=== PATIENT | female | born 1980 | race Caucasian/White ===

== ENCOUNTER 2016-08-03 20:34 | Emergency (ER) | payer BC ==
[~2016-08-03] VITALS: Ht 162.6 cm; Wt 117.5 kg
[~2016-08-03 20:34] MED LIST: ESTR1TAB13 PO; ESTR1TAB15 PO; LEVO75TA PO; SERT100T PO
--- NOTE | 2016-08-03 21:24 | PHYS DOC ---
General Chief Complaint: FLANK PAIN Stated Complaint: LOWER BACK PAIN X 2 DAYS Time Seen by MD: 21:15 Source: patient Problems: History of Present Illness Initial Comments Patient here for right flank pain. Patient says it started last night when she was shopping. The pain was sudden, sharp, but then went away. Today, she is noted increased urination over the course the day, with increased frequency, and then tonight again her sharp right flank pain recurred. There is no history of injury or trauma to the area and she never had this happen before. She's had no fever or chills. There is no runny nose or sore throat. There is no chest pain or shortness of breath. She's had some nausea with the pain but no vomiting. She's been able to eat and drink today without difficulty. There's no abdominal pain. She has some chronic issues with diarrhea following gallbladder surgery but this is not acutely changed or different. She has increasing frequency of urination as noted but no dysuria no change in color of the urine. There's no vaginal discharge or bleeding. She's had a hysterectomy. She denies any acute focal extremity or neurologic complaints. Patient's really done nothing at home for this but drink cranberry juice and notes no other increased or decreasing factors. She has no known history of kidney issues. Patient's past nuchal history is remarkable for narcolepsy as well as some hypothyroidism. She is on appropriate medications. She is a nonsmoker and nonuser of ethanol. No history in the family kidney stones. Allergies: Coded Allergies: Penicillins (Verified Allergy, Unknown, 09/01/14) morphine (Verified Allergy, Unknown, 09/01/14) Past Medical History Medical History: other Surgical History: cholecystectomy Social History Smoker: non-smoker Alcohol: none Review of Systems All Other Systems: Reviewed and Negative Physical Exam General Appearance: WD/WN, no apparent distress Neck: supple, normal inspection Respiratory: lungs clear, normal breath sounds, no respiratory distress Cardiovascular: regular rate, rhythm, no edema Gastrointestinal: non tender, soft Back: no vertebral tenderness, CVA tenderness (R) Extremities: non-tender, normal inspection, no pedal edema Neurologic/Psychiatric: alert, normal mood/affect, oriented x 3 Skin: normal color Lymphatic: no adenopathy Comments Generally this is a morbidly obese white female in no acute distress. Vitals are as noted. Pertinent findings on physical exam showed chest to be clear. Cardiac exam shows regular rate and rhythm without murmur. The abdomen is soft and nontender without masses or megaly. There is no perineal findings. There is some mild to moderate right CVA tenderness noted on the back. Vertebral areas are clear and there is no signs of trauma. Extremity show no rashes cyanosis or edema. Neurologic exam shows patient awake alert oriented and cooperative. Remainder of physical exam is clinically unremarkable. Orders, Labs, Meds Old charts note no prior ER visits within the current system. Labs here clinically unremarkable. Renal function is stable. Patient does have some hematuria consistent with renal stones. CT scan of the abdomen and pelvis shows a 4 mm calculus at the right ureterovesicular junction with mild obstructive uropathy. Is also small bilateral nonobstructing renal calculi. Soft tissue density in the right middle lobe for which follow-up is recommended per radiology. 2310 Patient resting comfortably in the ED. She feels better after fentanyl with only minimal pain remaining. I discussed with the patient most likely cause her pain is related to her renal stone. Fortunately this is a size that should pass on its own. I discussed with her that if she felt option, we could probably try to handle this at home. We can get her started on some appropriate medicine for pain and nausea, with outpatient follow-up to see why she is forming stones. She may also return to the ER immediately as needed if worsen anyway and consider admission at that time. Alternately, she still felt unwell her with some significant pain, we could certainly admit her for further care at this time. After discussion, the patient states she feels well enough and wants to try this at home. I think this is a reasonable decision on her part. We discussed home care including rest, increasing fluids including cranberry juice, local heat, and use of medication for pain and nausea. I'll write prescriptions for Zofran and Lortab accordingly. She does voice understanding of the need to follow up with primary care or return to the ER sooner as needed if worsening anyway. Also discussed with her possible soft tissue density over the chest area which will need follow-up by her primary care physician. She voices understanding. She looks well, in no acute discomfort distress, okay for discharge home at this time per her preference. CROW KIRBY MD Aug 03, 2016 21:24
[2016-08-03] MEDS ORDERED: IV NORMAL SALINE 1,000ML 1,000 ML IV ONE (21:30)
[2016-08-03] MEDS ORDERED: FENTANYL PF 100 MCG/2 ML VIAL. IV ONE (21:45)
--- NOTE | 2016-08-03 22:03 | RAD ---
PROCEDURE CT abdomen and pelvis without contrast HISTORY Right flank pain with nausea, onset last night. TECHNIQUE Helical CT imaging of the abdomen and pelvis is performed without IV or oral contrast. PQRS: One or more the following individualized dose reduction techniques were utilized for the study: 1. Automated exposure control. 2. Adjustment of the mA and/or kV according to patient size. 3. Use of iterative reconstruction technique. COMPARISON None. FINDINGS Evaluation of solid organs and bowel is limited without oral and IV contrast, decreasing sensitivity for detection of pathology. There is a lobular soft tissue density nodule in the right middle lobe measuring 2.4 x 1.4 cm. There are 2 tiny subpleural nodules in the left lower lobe, image 11. Cardiac size normal. Cholecystectomy. The liver, spleen, pancreas, adrenal glands, and abdominal aortic caliber normal. 3 millimeter nonobstructing left renal calculus. 2 millimeter nonobstructing calculus upper pole right kidney. There is mild right hydroureteronephrosis secondary to a 4 millimeter calculus at the ureterovesicular junction, image 136. Stomach unremarkable. No dilated small bowel. There is no colon wall thickening. The appendix is normal. No abdominal adenopathy or free fluid. Urinary bladder is nearly completely decompressed accentuating wall thickness. Uterus surgically absent. No pelvic free fluid. Fat density lesion right sacrum may be intraosseous lipoma. IMPRESSION 1. Mild right obstructive uropathy secondary to a 4 millimeter calculus at the ureterovesicular junction. 2. Bilateral nonobstructing renal calculi. 3. There is a lobular soft tissue density nodule in the right middle lobe. Recommend comparison with prior imaging. If none is available finding could be further evaluated with FDG PET/CT versus noncontrast CT chest follow up in 3 months. Electronically signed by: Toy Zapata MD (Aug 03, 2016 22:02:20)
[2016-08-03 22:29] LABS: BASO % 0 % (0-3); EOS # 0.2 x10^3/uL (0.0-0.7); EOS % 2 % (0-3); HEMATOCRIT 37.1 % (36.0-47.0); HEMOGLOBIN 11.9 g/dL (12.0-15.5); LYMPH # 2.5 x10^3/uL (1.0-4.8); LYMPH % 26 % (24-48); MEAN CORPUSCULAR HEMOGLOBIN 24 pg (25-35); MEAN CORPUSCULAR HGB CONC 32 g/dL (31-37); MEAN CORPUSCULAR VOLUME 75 fL (79-100); MONO # 0.7 x10^3/uL (0.0-1.1); MONO % 7 % (0-9); NEUT # 6.2 x10^3uL (1.8-7.7); NEUT % 64 % (31-73); PLATELET COUNT 206 x10^3/uL (140-400); RED BLOOD COUNT 4.91 x10^6/uL (3.50-5.40); RED CELL DISTRIBUTION WIDTH 13.6 % (11.5-14.5); WHITE BLOOD COUNT 9.5 x10^3/uL (4.0-11.0)
[2016-08-03 22:41] LABS: ALBUMIN 3.8 g/dL (3.4-5.0); ALBUMIN/GLOBULIN RATIO 0.8 (1.0-1.7); CALCIUM 9.1 mg/dL (8.5-10.1); GFR 63.5; POTASSIUM 3.8 mmol/L (3.5-5.1); TOTAL BILIRUBIN 0.3 mg/dL (0.2-1.0); TOTAL PROTEIN 8.4 g/dL (6.4-8.2)
[2016-08-03 22:55] LABS: BILIRUBIN,URINE NEG (NEG); CLARITY,URINE HAZY; COLOR,URINE YELLOW; GLUCOSE,URINE NEG (NEG)
[2016-08-03 22:56] LABS: BACTERIA,URINE FEW /HPF (0-FEW); NITRITE,URINE NEG (NEG); RBC,URINE 20-40 /HPF (0-2); UROBILINOGEN,URINE 0.2 mg/dL (0.2 mg/dL); WBC,URINE 0 /HPF (0-4)
[2016-08-03 22:57] LABS: SQUAMOUS EPITHELIAL CELL,UR MANY /LPF
[2016-08-03 23:43] VITALS: BP 158/99
== END 2016-08-03 23:44 | disposition home or self-care (01) ==
LOC: ER 20:34
DX: N20.0 Calculus of kidney (principal); E03.9 Hypothyroidism, unspecified; Z90.49 Acquired absence of other specified parts of digestive tract; Z88.0 Allergy status to penicillin; Z88.5 Allergy status to narcotic agent
CPT/HCPCS: 36415; 74176; 80053; 81001; 85027; 96361; 96374; 99285; J3010; J7030

== ENCOUNTER → 2017-07-19 | Outpatient (CLI) | payer BC ==
--- NOTE | 2017-07-19 16:30 | RAD ---
DATE: 07/19/2017 EXAM: MAMMO BUCKY SCREENING BILATERAL HISTORY: Routine screening COMPARISON: Previous mammogram from 2016 This study was interpreted with the benefit of Computerized Aided Detection (CAD). FINDINGS: Breast Density: SCATTERED The breast parenchyma shows scattered fibroglandular densities. Breast parenchyma level B. The skin and nipples are within normal limits. No suspicious calcifications, spiculated mass or area of architectural distortion. IMPRESSION: No mammographic evidence of malignancy. Relatively stable mammogram when compared to previous study. BI-RADS CATEGORY: 2 BENIGN FINDING(S) RECOMMENDED FOLLOW-UP: 12M 12 MONTH FOLLOW-UP PQRS compliance statement: Patient information was entered into a reminder system with a target due date for the next mammogram. Mammography is a sensitive method for finding small breast cancers, but it does not detect them all and is not a substitute for careful clinical examination. A negative mammogram does not negate a clinically suspicious finding and should not result in delay in biopsying a clinically suspicious abnormality. "Our facility is accredited by the [employer] Mammography [employer]."
== END | disposition home or self-care (01) ==
LOC: MAMMO 15:34
PROVIDERS: ATTEND Obstetrics & Gynecology
DX: Z12.31 Encounter for screening mammogram for malignant neoplasm of breast (principal)
CPT/HCPCS: 77063; 77067

== ENCOUNTER → 2018-11-26 | Outpatient (CLI) | payer BC ==
--- NOTE | 2018-11-28 10:21 | RAD ---
DATE: 11/26/2018 EXAM: MAMMO BUCKY SCREENING BILATERAL HISTORY: Routine screening COMPARISON: 11/20/2015 and 07/11/2017 mammographic exams This study was interpreted with the benefit of Computerized Aided Detection (CAD). Breast Density: SCATTERED The breast parenchyma shows scattered fibroglandular densities. Breast parenchyma level B. FINDINGS: No mass, suspicious calcification, or distortion. IMPRESSION: Stable BI-RADS CATEGORY: 1 NEGATIVE RECOMMENDED FOLLOW-UP: 12M 12 MONTH FOLLOW-UP PQRS compliance statement: Patient information was entered into a reminder system with a target due date in one year for the next mammogram. Mammography is a sensitive method for finding small breast cancers, but it does not detect them all and is not a substitute for careful clinical examination. A negative mammogram does not negate a clinically suspicious finding and should not result in delay in biopsying a clinically suspicious abnormality. "Our facility is accredited by the [employer] Mammography Program."
== END | disposition home or self-care (01) ==
LOC: MAMMO 15:28
PROVIDERS: ATTEND Obstetrics & Gynecology
DX: Z12.31 Encounter for screening mammogram for malignant neoplasm of breast (principal)
CPT/HCPCS: 77063; 77067

== ENCOUNTER 2019-02-21 05:03 | Emergency (ER) | payer BC ==
[~2019-02-21] VITALS: Ht 165.1 cm; Wt 127.0 kg
[2019-02-21] MEDS ORDERED: IV RINGERS SOLUTION,LACTATED 1,000 ML IV SCH (05:08)
--- NOTE | 2019-02-21 05:08 | ED.ADGEN ---
Past History Past Medical History: Asthma, Depression, Hypothyroid, Kidney Stones, Other (ANDRESSA MANNING MD) Past Surgical History: Hysterectomy (ANDRESSA MANNING MD) Alcohol Use: None Drug Use: None (ANDRESSA MANNING MD) Adult General Chief Complaint Chief Complaint ".. I ve had a cold the last few days.. and have been take codeine... for my cold.. but I got this severe pain in my Lt. flank that woke me out of sleep.. it a little lower now.. and comes around front..." (NADRESSA MANNING MD) HPI HPI Patient is a 38 year old female who presents with above hx and complaints of severe 10 out of 10 left flank pain starting at 3:00 this morning. Pain radiates down her last side or flank and around to her abdomen. Percussion exacerbates pain. Patient does have a history of previous kidney stones. Has had a total hysterectomy and removal ovaries due to severe endometriosis... No recent travel. No specific ill contacts but does work as a [employer]. No recent travel. No history immunosuppression. No history of trauma. (ANDRESSA MANNING MD) Review of Systems Review of Systems Constitutional: Denies fever or chills [] Eyes: Denies change in visual acuity, redness, or eye pain [] HENT: Denies nasal congestion or sore throat [] Respiratory: Denies cough or shortness of breath [] Cardiovascular: No additional information not addressed in HPI [] GI: Complaints of left flank abdominal pain, nausea,. Denies Vomiting, bloody stools or diarrhea [] : Denies dysuria or hematuria [] Musculoskeletal: Plaints of left flank back pain Integument: Denies rash or skin lesions [] Neurologic: Denies headache, focal weakness or sensory changes [] Endocrine: Denies polyuria or polydipsia [] All other systems were reviewed and found to be within normal limits, except as documented in this note. (ANDRESSA MANNING MD) Family History Family History Noncontributory (ANDRESSA MANNING MD) Current Medications Current Medications Current Medications Medications (Trade) Dose Ordered Sig/Barron Start Time Stop Time Status Last Admin Dose Admin Famotidine (Pepcid Vial) 20 mg 1X ONCE 02/21/19 05:15 02/21/19 05:34 DC 02/21/19 05:27 20 MG Ketorolac Tromethamine (Toradol 30mg Vial) 30 mg 1X ONCE 02/21/19 05:30 02/21/19 05:34 DC 02/21/19 05:32 30 MG Lactated Ringer's 1,000 ml @ 1,000 mls/hr Q1H 02/21/19 05:08 02/21/19 06:07 DC 02/21/19 05:26 1,000 MLS/HR Ondansetron HCl (Zofran) 8 mg 1X ONCE 02/21/19 05:15 02/21/19 05:34 DC 02/21/19 05:27 8 MG ([facility]) Allergies Allergies Allergies Coded Allergies Type Severity Reaction Last Updated Verified Penicillins Allergy Unknown 09/01/14 Yes morphine Allergy Unknown 09/01/14 Yes ([facility] Physical Exam Physical Exam Constitutional: in acute distress, non-toxic appearance. [] HENT: Normocephalic, atraumatic, bilateral external ears normal, oropharynx moist, no oral exudates, nose normal. [] Eyes: PERRLA, EOMI, conjunctiva normal, no discharge. [] Neck: Normal range of motion, no tenderness, supple, no stridor. [] Cardiovascular:Heart rate regular rhythm, no murmur [] Lungs & Thorax: Bilateral breath sounds clear to auscultation [] Abdomen: Bowel sounds decreased,, soft, flank tenderness, no masses, no pulsatile masses. [] Old surgery scar Skin: Warm, dry, no erythema, no rash. [] Back: No tenderness, left CVA tenderness. [] Extremities: No tenderness, no cyanosis, no clubbing, ROM intact, no edema. [] No psoas sign Neurologic: Alert and oriented X 3, normal motor function, normal sensory function, no focal deficits noted. [] Psychologic: Affect anxious, judgement normal, mood normal. [] (ANDRESSA MANNING MD) Current Patient Data Vital Signs Vital Signs Date Time Temp Pulse Resp B/P (MAP) Pulse Ox O2 Delivery O2 Flow Rate FiO2 02/21/19 05:06 98.1 92 20 97 Room Air ([facility]) Lab Results Laboratory Tests Test 02/21/19 05:08 02/21/19 05:24 Urine Collection Type Unknown Urine Color Yellow Urine Clarity Clear Urine pH 6.5 Urine Specific [place] 1.025 Urine Protein Neg (NEG-TRACE) Urine Glucose (UA) Neg mg/dL (NEG) Urine Ketones (Stick) Neg mg/dL (NEG) Urine Blood Large (NEG) Urine Nitrite Neg (NEG) Urine Bilirubin Neg (NEG) Urine Urobilinogen Dipstick 0.2 mg/dL (0.2 mg/dL) Urine Leukocyte Esterase Neg (NEG) Urine RBC >40 /HPF (0-2) Urine WBC Occ /HPF (0-4) Urine Squamous Epithelial Cells Few /LPF Urine Bacteria 0 /HPF (0-FEW) Urine Opiates Screen Pos (NEG) Urine Methadone Screen Neg (NEG) Urine Barbiturates Neg (NEG) Urine Phencyclidine Screen Neg (NEG) Urine Amphetamine/Methamphetamine Neg (NEG) Urine Benzodiazepines Screen Neg (NEG) Urine Cocaine Screen Neg (NEG) Urine Cannabinoids Screen Neg (NEG) Urine Ethyl Alcohol Neg (NEG) White Blood Count 11.9 x10^3/uL (4.0-11.0) H Red Blood Count 5.20 x10^6/uL (3.50-5.40) Hemoglobin 12.7 g/dL (12.0-15.5) Hematocrit 40.4 % (36.0-47.0) Mean Corpuscular Volume 78 fL (79-100) L Mean Corpuscular Hemoglobin 24 pg (25-35) L Mean Corpuscular Hemoglobin Concent 32 g/dL (31-37) Red Cell Distribution Width 13.6 % (11.5-14.5) Platelet Count 232 x10^3/uL (140-400) Neutrophils (%) (Auto) 83 % (31-73) H Lymphocytes (%) (Auto) 13 % (24-48) L Monocytes (%) (Auto) 5 % (0-9) Eosinophils (%) (Auto) 0 % (0-3) Basophils (%) (Auto) 0 % (0-3) Neutrophils # (Auto) 9.8 x10^3uL (1.8-7.7) H Lymphocytes # (Auto) 1.5 x10^3/uL (1.0-4.8) Monocytes # (Auto) 0.6 x10^3/uL (0.0-1.1) Eosinophils # (Auto) 0.0 x10^3/uL (0.0-0.7) Basophils # (Auto) 0.0 x10^3/uL (0.0-0.2) Maternal Serum HCG Beta Subunit < 1 mIU/mL (0-6) Sodium Level 141 mmol/L (136-145) Potassium Level 4.4 mmol/L (3.5-5.1) Chloride Level 104 mmol/L (98-107) Carbon Dioxide Level 26 mmol/L (21-32) Anion Gap 11 (6-14) Blood Urea Nitrogen 21 mg/dL (7-20) H Creatinine 1.0 mg/dL (0.6-1.0) Estimated GFR (Cockcroft-Gault) 62.7 Glucose Level 133 mg/dL (70-99) H Calcium Level 8.9 mg/dL (8.5-10.1) Total Bilirubin 0.2 mg/dL (0.2-1.0) Direct Bilirubin 0.1 mg/dL (0.0-0.2) Aspartate Amino Transferase (AST) 12 U/L (15-37) L Alanine Aminotransferase (ALT) 18 U/L (14-59) Alkaline Phosphatase 70 U/L (46-116) Troponin I Quantitative < 0.017 ng/mL (0-0.055) Total Protein 8.1 g/dL (6.4-8.2) Albumin 3.4 g/dL (3.4-5.0) Amylase Level 52 U/L (25-115) Lipase 105 U/L (73-393) ([facility]) Lab Results Laboratory Tests Test 02/21/19 05:08 02/21/19 05:24 Urine Collection Type Unknown Urine Color Yellow Urine Clarity Clear Urine pH 6.5 Urine Specific [place] 1.025 Urine Protein Neg (NEG-TRACE) Urine Glucose (UA) Neg mg/dL (NEG) Urine Ketones (Stick) Neg mg/dL (NEG) Urine Blood Large (NEG) Urine Nitrite Neg (NEG) Urine Bilirubin Neg (NEG) Urine Urobilinogen Dipstick 0.2 mg/dL (0.2 mg/dL) Urine Leukocyte Esterase Neg (NEG) Urine RBC >40 /HPF (0-2) Urine WBC Occ /HPF (0-4) Urine Squamous Epithelial Cells Few /LPF Urine Bacteria 0 /HPF (0-FEW) Urine Opiates Screen Pos (NEG) Urine Methadone Screen Neg (NEG) Urine Barbiturates Neg (NEG) Urine Phencyclidine Screen Neg (NEG) Urine Amphetamine/Methamphetamine Neg (NEG) Urine Benzodiazepines Screen Neg (NEG) Urine Cocaine Screen Neg (NEG) Urine Cannabinoids Screen Neg (NEG) Urine Ethyl Alcohol Neg (NEG) White Blood Count 11.9 x10^3/uL (4.0-11.0) H Red Blood Count 5.20 x10^6/uL (3.50-5.40) Hemoglobin 12.7 g/dL (12.0-15.5) Hematocrit 40.4 % (36.0-47.0) Mean Corpuscular Volume 78 fL (79-100) L Mean Corpuscular Hemoglobin 24 pg (25-35) L Mean Corpuscular Hemoglobin Concent 32 g/dL (31-37) Red Cell Distribution Width 13.6 % (11.5-14.5) Platelet Count 232 x10^3/uL (140-400) Neutrophils (%) (Auto) 83 % (31-73) H Lymphocytes (%) (Auto) 13 % (24-48) L Monocytes (%) (Auto) 5 % (0-9) Eosinophils (%) (Auto) 0 % (0-3) Basophils (%) (Auto) 0 % (0-3) Neutrophils # (Auto) 9.8 x10^3uL (1.8-7.7) H Lymphocytes # (Auto) 1.5 x10^3/uL (1.0-4.8) Monocytes # (Auto) 0.6 x10^3/uL (0.0-1.1) Eosinophils # (Auto) 0.0 x10^3/uL (0.0-0.7) Basophils # (Auto) 0.0 x10^3/uL (0.0-0.2) Maternal Serum HCG Beta Subunit < 1 mIU/mL (0-6) Sodium Level 141 mmol/L (136-145) Potassium Level 4.4 mmol/L (3.5-5.1) Chloride Level 104 mmol/L (98-107) Carbon Dioxide Level 26 mmol/L (21-32) Anion Gap 11 (6-14) Blood Urea Nitrogen 21 mg/dL (7-20) H Creatinine 1.0 mg/dL (0.6-1.0) Estimated GFR (Cockcroft-Gault) 62.7 Glucose Level 133 mg/dL (70-99) H Calcium Level 8.9 mg/dL (8.5-10.1) Total Bilirubin 0.2 mg/dL (0.2-1.0) Direct Bilirubin 0.1 mg/dL (0.0-0.2) Aspartate Amino Transferase (AST) 12 U/L (15-37) L Alanine Aminotransferase (ALT) 18 U/L (14-59) Alkaline Phosphatase 70 U/L (46-116) Troponin I Quantitative < 0.017 ng/mL (0-0.055) Total Protein 8.1 g/dL (6.4-8.2) Albumin 3.4 g/dL (3.4-5.0) Amylase Level 52 U/L (25-115) Lipase 105 U/L (73-393) (ANDRESSA MANNING MD) EKG EKG [] (ANDRESSA MANNING MD) Radiology/Procedures Radiology/Procedures [][place] [address] IMAGING REPORT Signed PATIENT: POLA ANDERSON ACCOUNT: [id number] : 1980 LOCATION: ER AGE: 38 SEX: F EXAM STATUS: REG ER ORD. PHYSICIAN: ANDRESSA MANNING MD REASON: Lt flank pain., nausea PROCEDURE: CT ABDOMEN PELVIS WO CONTRAST Abdominal and Pelvis CT, Without Contrast: History: Left flank pain and nausea Comparison: None. Procedure: Axial images are obtained of the abdomen and pelvis, without IV or oral contrast. Oral Contrast: No Findings: Evaluation of solid organs is limited without contrast. Evaluation of stomach and bowel is limited without oral contrast. There is been prior cholecystectomy. The appendix is normal. There is a small nonobstructive stone in the right renal pelvis. There is mild left hydronephrosis and left hydroureter secondary to a 4 mm stone in the distal left ureter. There is a lipoma in the right sacral lico seen previously. Liver: Normal. Spleen: Normal. Pancreas: Normal. Adrenal Glands: Normal. There is no free air or free fluid. There is no lymphadenopathy. The urinary bladder appears normal. There is no pericolonic inflammation identified. Impression: Mild left hydroureter and left hydronephrosis secondary to a 4 mm stone in the distal left ureter. End impression PQRS Compliance Statement: One or more of the following individualized dose reduction techniques were utilized for this examination: 1. Automated exposure control 2. Adjustment of the mA and/or kV according to patient size 3. Use of iterative reconstruction technique Electronically signed by: Asaf Patel III, MD (02/21/2019 6:27 AM) [facility] DICTATED AND SIGNED BY: ASAF PATEL III, MD DATE: 02/21/19626 CC: NAHOMI ORANTES DO; ANDRESSA MANNING MD; ISREAL DIAL MD ~ (ANDRESSA MANNING MD) Radiology/Procedures PROCEDURE: CT ABDOMEN PELVIS WO CONTRAST Abdominal and Pelvis CT, Without Contrast: History: Left flank pain and nausea Comparison: None. Procedure: Axial images are obtained of the abdomen and pelvis, without IV or oral contrast. Oral Contrast: No Findings: Evaluation of solid organs is limited without contrast. Evaluation of stomach and bowel is limited without oral contrast. There is been prior cholecystectomy. The appendix is normal. There is a small nonobstructive stone in the right renal pelvis. There is mild left hydronephrosis and left hydroureter secondary to a 4 mm stone in the distal left ureter. There is a lipoma in the right sacral lico seen previously. Liver: Normal. Spleen: Normal. Pancreas: Normal. Adrenal Glands: Normal. There is no free air or free fluid. There is no lymphadenopathy. The urinary bladder appears normal. There is no pericolonic inflammation identified. Impression: Mild left hydroureter and left hydronephrosis secondary to a 4 mm stone in the distal left ureter. (NAHOMI ORANTES DO) Course & Med Decision Making Course & Med Decision Making Pertinent Labs and Imaging studies reviewed. (See chart for details) Check out at 0600- [facility] . CT, Labs Xrays pending. He will make disposition. [] (ANDRESSA MANNING MD) Course & Med Decision Making Received patient at 6 AM. Agree with previous H&P. On evaluation the patient, she reported good pain control with the ketorolac. She was transported to and from radiology with any complications. After return of laboratory and imaging findings, these were discussed with the patient voiced understanding. She was discharged in improved condition. Medical decision making: Patient with a distal 4 mm ureteral stone. There is no evidence of urinary tract infection. No evidence of renal failure. No significant electrolyte abnormality. No oral intake intolerance. No inadequate pain management. (NAHOMI ORANTES DO) Final Impression Final Impression 1. Left flank abdomen pain- Renal Colic/ Stone 2. History of recent upper respiratory infection[] (ANDRESSA MANNING MD) Dragon Disclaimer Dragon Disclaimer This electronic medical record was generated, in whole or in part, using a voice recognition dictation system. (ANDRESSA MANNING MD) Dragon Disclaimer This chart was dictated in whole or in part using Voice Recognition software in a busy, high-work load, and often noisy Emergency Department environment. It may contain unintended and wholly unrecognized errors or omissions. (ANDRESSA MANNING MD) ANDRESSA MANNING MD Feb 21, 2019 05:08 NAHOMI ORANTES DO Feb 21, 2019 06:38
[2019-02-21] MEDS ORDERED: ONDANSETRON PF 4 MG/2 ML VIAL. IVP ONE (05:15)
[2019-02-21] MEDS ORDERED: FAMOTIDINE 20 MG/2 ML VIAL IVP ONE (05:15)
[2019-02-21] MEDS ORDERED: KETOROLAC 30 MG/ML VIAL. ONE (05:24)
[2019-02-21] MEDS ORDERED: KETOROLAC 30 MG/ML VIAL. IVP ONE (05:30)
[2019-02-21 05:37] LABS: BASO % 0 % (0-3); EOS % 0 % (0-3); HEMATOCRIT 40.4 % (36.0-47.0); HEMOGLOBIN 12.7 g/dL (12.0-15.5); LYMPH # 1.5 x10^3/uL (1.0-4.8); LYMPH % 13 % (24-48); MEAN CORPUSCULAR HEMOGLOBIN 24 pg (25-35); MEAN CORPUSCULAR HGB CONC 32 g/dL (31-37); MEAN CORPUSCULAR VOLUME 78 fL (79-100); MONO # 0.6 x10^3/uL (0.0-1.1); MONO % 5 % (0-9); NEUT # 9.8 x10^3uL (1.8-7.7); NEUT % 83 % (31-73); PLATELET COUNT 232 x10^3/uL (140-400); RED CELL DISTRIBUTION WIDTH 13.6 % (11.5-14.5); WHITE BLOOD COUNT 11.9 x10^3/uL (4.0-11.0)
[2019-02-21 05:50] LABS: BARBITURATES NEG (NEG); BENZODIAZEPINES NEG (NEG); CANNABINOIDS NEG (NEG); COCAINE NEG (NEG); METHADONE NEG (NEG); OPIATES POS (NEG); PHENCYCLIDINE NEG (NEG)
[2019-02-21 05:53] LABS: AMPHETAMINE/METHAMPHETAMINE NEG (NEG)
[2019-02-21 05:53] LABS: ALBUMIN 3.4 g/dL (3.4-5.0); CALCIUM 8.9 mg/dL (8.5-10.1); DIRECT BILIRUBIN 0.1 mg/dL (0.0-0.2); GFR 62.7; POTASSIUM 4.4 mmol/L (3.5-5.1); TOTAL BILIRUBIN 0.2 mg/dL (0.2-1.0); TOTAL PROTEIN 8.1 g/dL (6.4-8.2)
[2019-02-21 06:01] LABS: BACTERIA,URINE 0 /HPF (0-FEW); BILIRUBIN,URINE NEG (NEG); CLARITY,URINE CLEAR; COLOR,URINE YELLOW; GLUCOSE,URINE NEG (NEG); NITRITE,URINE NEG (NEG); RBC,URINE >40 /HPF (0-2); SQUAMOUS EPITHELIAL CELL,UR FEW /LPF; UROBILINOGEN,URINE 0.2 mg/dL (0.2 mg/dL); WBC,URINE OCC /HPF (0-4)
--- NOTE | 2019-02-21 06:29 | RAD ---
Abdominal and Pelvis CT, Without Contrast: History: Left flank pain and nausea Comparison: None. Procedure: Axial images are obtained of the abdomen and pelvis, without IV or oral contrast. Oral Contrast: No Findings: Evaluation of solid organs is limited without contrast. Evaluation of stomach and bowel is limited without oral contrast. There is been prior cholecystectomy. The appendix is normal. There is a small nonobstructive stone in the right renal pelvis. There is mild left hydronephrosis and left hydroureter secondary to a 4 mm stone in the distal left ureter. There is a lipoma in the right sacral lico seen previously. Liver: Normal. Spleen: Normal. Pancreas: Normal. Adrenal Glands: Normal. There is no free air or free fluid. There is no lymphadenopathy. The urinary bladder appears normal. There is no pericolonic inflammation identified. Impression: Mild left hydroureter and left hydronephrosis secondary to a 4 mm stone in the distal left ureter. End impression PQRS Compliance Statement: One or more of the following individualized dose reduction techniques were utilized for this examination: 1. Automated exposure control 2. Adjustment of the mA and/or kV according to patient size 3. Use of iterative reconstruction technique Electronically signed by: Travis Rosales III, MD (02/21/2019 6:27 AM) [facility]
--- NOTE | 2019-02-21 06:30 | RAD ---
Acute Abdominal Series: Technique: PA view of the chest and supine and upright views of the abdomen were obtained. History: Left flank pain. Comparison: None. Findings: The lungs and pleural margins are clear. The bowel gas pattern appears normal. There is no free air. Impression: Radiographically normal acute abdominal series. Electronically signed by: Travis Rosales III, MD (02/21/2019 6:28 AM) [id number]
[2019-02-21 06:38] VITALS: BP 144/78
[2019-02-21] MEDS ORDERED: MELO7.5T29 PO (06:41)
[2019-02-21] MEDS ORDERED: ONDA4TAB7 PO (06:41)
[2019-02-21] MEDS ORDERED: HYDR-3165 PO (06:41)
[2019-02-21] MEDS ORDERED: TAMS0.4C97 PO (06:41)
== END 2019-02-21 06:50 | disposition home or self-care (01) ==
LOC: ER 05:03
DX: N13.2 Hydronephrosis with renal and ureteral calculous obstruction (principal); J45.909 Unspecified asthma, uncomplicated; E03.9 Hypothyroidism, unspecified; Z87.442 Personal history of urinary calculi; Z90.710 Acquired absence of both cervix and uterus; Z88.0 Allergy status to penicillin; Z88.5 Allergy status to narcotic agent
CPT/HCPCS: 36415; 74022; 74176; 80048; 80076; 80307; 81001; 82150; 83690; 84484; 84702; 85025; 96374; 96375; 99285; J1885; J2405; J3490; J7120